=== PATIENT | female | born 2000 | race Two or more races ===

== ENCOUNTER 2022-07-04 22:26 | Emergency (ER) | payer BC, SELFPAY ==
--- NOTE | ~2022-07-04 | XR_ITS ---
EXAMINATION: XR HAND, RIGHT CLINICAL INFORMATION: Injury COMPARISON: None available. TECHNIQUE: PA, lateral, and oblique views of the right hand. FINDINGS: There is a nondisplaced avulsion fracture involving the radial base of the third distal phalanx, which may be marginally extending to the subchondral bone plate. No additional fractures. No dislocation. Soft tissues unremarkable. XR/XR hand RT 2V IMPRESSION: Nondisplaced avulsion fracture involving the radial base of the third distal phalanx, marginally extending to the subchondral bone plate.
[2022-07-04 22:36] VITALS: BP 113/69; PULSE 67; RESP 16; TEMP 36.2; O2SAT 100; BMI 19.9
--- NOTE | 2022-07-05 01:21 | ED_ITS ---
HPI - Extremity Problem General Chief complaint: Extremity Problem Stated complaint: right finger inj Time Seen by Provider: 07/05/22 01:19 Source: patient Mode of arrival: ambulatory Limitations: no limitations History of Present Illness HPI Narrative: 22-year-old female presents with right middle digit injury and bruising. Patient was walking her horse, and the horse pulled on the reigns and pulled her finger back. MD Complaint: extremity pain and extremity swelling Onset (ago): hour(s) (Within the hour of arrival) Pain Consistency: constant Location: right (Third finger) Severity scale (1-10): 5 Quality: aching Radiation: none Relieving factors: cold therapy and rest Exacerbating factors: range of motion and palpation Associated symptoms: denies other symptoms Related Data Allergies Allergy/AdvReac Type Severity Reaction Status Date / Time No Known Allergies Allergy Verified 07/04/22 22:42 Review of Systems Review of Systems: Constitutional: No Fever, No Chills Musculoskeletal: positive right 3rd finger pain, No Myalgias, No Joint Swelling Skin: No Skin lacerations, No rash Neuro: No Weakness, No Numbness, No Paresthesias Yes all other systems are reviewed and are negative [facility] Past Medical History Attestation statement: The following information was validated with the patient. Source: old records reviewed Physical Exam Vital Signs: Vital Signs: Last Vital Signs Temp 97.1 F 07/04/22 22:36 Pulse 67 07/04/22 22:36 Resp 16 07/04/22 22:36 BP 113/69 07/04/22 22:36 Pulse Ox 100 07/04/22 22:36 O2 Del Method Room Air 07/04/22 22:36 BMI result Body Mass Index 19.9 Appearance: Alert. Oriented X3. No acute distress. Eyes: Pupils equal, round and reactive to light. Neck: Normal inspection. Neck supple. CVS: Normal heart rate and rhythm. Pulses normal. Respiratory: No respiratory distress. Breath sounds normal. Skin: Skin warm and dry. Normal skin color. Normal skin turgor. Extremities: Right 3rd finger bruising at the D IP. Brisk capillary refill, decreased range of motion secondary to pain. Neurovascularly intact. Neuro: No motor deficit. No sensory deficit. Cranial nerves intact. Course Course Course Narrative: 22-year-old female presents with 3rd digit pain on the right side after getting her finger pulled back on her horses reigns. She does have some bruising and swelling. She has brisk capillary refill, and is neurovascularly intact. X- rays were taken while she was in the emergency department waiting room which indicates a nondisplaced avulsion fracture on the radial side of the distal phalanx. Plan of care is the lenora taped and splint the finger. No indication of tendon deficit. Will treat with ibuprofen, ice, and give time off from sports. Patient verbalized understanding of and agrees plan of care discharge home. Verbalized understanding of signs symptoms indicating need for emergent intervention. Medical Decision Making Differential Diagnosis Differential Diagnoses: The differential diagnosis associated with the presentation includes Fracture, dislocation Independent Interpretation I performed an independent interpretation of an: Plain X-Ray Radiology Impression Discussion of test interpretation with radiology: I have reviewed the radiologist's reading. Radiologist Impression: EXAMINATION: XR HAND, RIGHT CLINICAL INFORMATION: Injury? COMPARISON: None available.? TECHNIQUE: PA, lateral, and oblique views of the right hand. FINDINGS: There is a nondisplaced avulsion fracture involving the radial base of the third distal phalanx, which may be marginally extending to the subchondral bone plate. No additional fractures. No dislocation. Soft tissues unremarkable. XR/XR hand RT 2V IMPRESSION: Nondisplaced avulsion fracture involving the radial base of the third distal phalanx, marginally extending to the subchondral bone plate. External Record Review No prior records at this facility for this patient Prescription Management I considered prescription management with: Pain Medication Ibuprofen, Tylenol Discharge Plan Discharge Clinical Impression: Finger fracture, right Patient Disposition: Home, Self-Care Instructions: Finger Fracture (ED), R.I.C.E. Treatment (ED) Additional Instructions: You were evaluated for right finger injury. X-rays indicate a nondisplaced avulsion fracture at the base of your finger tip. Please keep the splint in place for comfort. Lenora tape your fingers together. This injury may take several weeks to heal. You may resume activities as tolerated Rest ice and elevate the extremity to help reduce pain and swelling. Alternate Tylenol 650 mg every 6 hours and Motrin 600 mg every 6 hours as needed for pain and fever management. Consider taking these medications 3 hours apart so you have pain and fever management every 3 hours. Write down what time you take these medications to prevent accidental overdose. Motrin is the same medication as Advil and ibuprofen. Tylenol is the same medication as acetaminophen. Thank you for choosing this emergency department for evaluation. Please follow-up with primary care physician as needed. Return to the emergency department for any new, concerning, or worsening symptoms. Stand Alone Forms: Work/School Release
[2022-07-05] MEDS: Ibuprofen 600 MG TABLET PO (01:48)
[2022-07-05 01:51] VITALS: BP 127/63; PULSE 54; RESP 16; O2SAT 100
== END 2022-07-05 01:52 | disposition home or self-care (01) ==
LOC: HO.ED 07-05 01:47
PROVIDERS: Emergency Provider Emergency Medicine Emergency Medical Services; PCP General Practice
DX: S62.632A Displaced fracture of distal phalanx of right middle finger, initial encounter for closed fracture (principal); Y33.XXXA Other specified events, undetermined intent, initial encounter; Y93.9 Activity, unspecified; Y92.9 Unspecified place or not applicable; Y99.9 Unspecified external cause status
CPT/HCPCS: 29130; 73120; 99284

== ENCOUNTER 2022-12-24 19:21 | Emergency (ER) | payer BC, SELFPAY ==
--- NOTE | ~2022-12-24 | CT_ITS ---
EXAMINATION: CT HEAD WITHOUT CONTRAST CLINICAL INFORMATION: Fall from horse. COMPARISON: None TECHNIQUE: Contiguous axial imaging was performed from the skull base to vertex without intravenous administration of contrast. This CT examination was performed using dose optimization techniques as appropriate, variously including the following: *Automated exposure control *Adjustment of mA and/or kV according to patient size (this includes techniques or standardized protocols for targeted exams where dose is matched to indication/reason for exam; i.e. extremities or head) *Use of iterative reconstruction technique DLP: 608 mGy-cm FINDINGS: There is no evidence of acute intracranial hemorrhage or edematous territorial infarction. There is no abnormal attenuation within the brain parenchyma. Diaz-white matter differentiation is preserved. The ventricles are normal in size and configuration. No evidence for obstructive hydrocephalus. No abnormal mass effect or midline shift. No extra-axial fluid collections. No acute soft tissue or osseous abnormalities. The mastoid air cells and paranasal sinuses are clear. CT/CT head/brain wo IV con IMPRESSION: No evidence of acute intracranial hemorrhage or edematous territorial infarction.
[2022-12-24 19:42] VITALS: BP 116/62; PULSE 53; RESP 14; TEMP 37.4; O2SAT 100; BMI 20.2
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
[2022-12-25 00:02] VITALS: BP 107/67; PULSE 52; RESP 14; O2SAT 98
[2022-12-25 01:34] VITALS: BP 103/65; PULSE 55; RESP 16; O2SAT 100
--- NOTE | 2022-12-25 01:37 | PC.NURSE ---
Patient presenting post head injury, patient states that ice to the head has helped with the pain. Patient alert and oriented with no s/s of distress noted. Patient able to move all extremities independently and without issue.
== END 2022-12-25 01:49 | disposition home or self-care (01) ==
PROVIDERS: Emergency Provider Emergency Medicine; PCP General Practice
DX: S06.0X0A Concussion without loss of consciousness, initial encounter (principal); R51.9 Headache, unspecified; V80.010A Animal-rider injured by fall from or being thrown from horse in noncollision accident, initial encounter; Y93.9 Activity, unspecified; Y92.9 Unspecified place or not applicable; Y99.9 Unspecified external cause status
CPT/HCPCS: 70450; 99284